=== PATIENT | male | born 1985 ===

== ENCOUNTER 2024-03-07 19:17 | Inpatient (IN) | payer OTHER ==
[2024-03-07 20:47] LABS: VENOUS BASE EXCESS -2.9 mmol/L (-2-2); VENOUS O2 SATURATION 34.2 % (70-80); VENOUS PCO2 49.9 mmHg (38-52); VENOUS PH 7.301 (7.310-7.410)
[2024-03-07 20:53] LABS: BASO % 0.4 % (0-2.0); EOS % 0.5 % (0-4.5); HEMATOCRIT 42.7 % (35.4-49); HEMOGLOBIN 14.3 GM/dL (11.7-16.9); LYMPH % 18.6 % (8-40); MCH 25.9 pg (25.7-33.7); MCHC 33.5 g/dl (32.0-35.9); MEAN CELL VOLUME 77.2 fl (80-96); MEAN PLT VOLUME 7.8 fl (7.5-11.1); MONO % 7.8 % (3.8-10.2); NEUT % 72.7 % (42.8-82.8); PLATELET COUNT 238 10^3/uL (134-434); RBC 5.54 M/mm3 (4.00-5.60); RDW 14.7 % (11.9-15.9); WHITE BLOOD COUNT 12.1 K/mm3 (4.0-10.0)
[2024-03-07 20:57] LABS: INR 1.05 (0.83-1.09); PROTHROMBIN TIME (PATIENT) 11.8 SEC (9.7-13.0)
[2024-03-07] MEDS: SODIUM CHLORIDE 0.9% 500 ML INFUS.BAG IV ONE ×2 (20:57→21:54)
[2024-03-07 21:00] LABS: ACTIVATED PTT 31.1 SECONDS (25.2-36.5)
[2024-03-07 21:08] LABS: CHLORIDE 103 mmol/L (98-107); POTASSIUM 4.3 mmol/L (3.5-5.1); SODIUM 137 mmol/L (136-145)
[2024-03-07 21:11] LABS: ALBUMIN 4.2 g/dl (3.4-5.0); ANION GAP 7 mmol/L (4-13); BLOOD UREA NITROGEN 14.2 mg/dL (7-18); CALCIUM 9.4 mg/dL (8.5-10.1); CO2 27 mmol/L (21-32); GLUCOSE,RANDOM 162 mg/dL (74-106); MAGNESIUM 2.2 mg/dL (1.8-2.4)
[2024-03-07 21:14] LABS: SGOT/AST 19 U/L (15-37); SGPT/ALT 20 U/L (13-61)
[2024-03-07 21:15] LABS: CREATININE 1.1 mg/dL (0.55-1.3)
[2024-03-07 21:16] LABS: BILIRUBIN,TOTAL 0.6 mg/dL (0.2-1); TOT PROT 7.8 g/dl (6.4-8.2)
[2024-03-07 21:17] LABS: ALK PHOS 81 U/L (45-117)
[2024-03-07] MEDS ORDERED: NALOXONE HCL 0.4 MG/ML VIAL ONE ×2 (21:23→22:43)
[2024-03-07] MEDS: NALOXONE HCL 0.4 MG/ML VIAL IVPUSH ONE ×2 (21:54→23:00)
[2024-03-08] MEDS: NALOXONE HCL 2 MG in DEXTROSE 5%-WATER - 495 ML IV SCH ×3 (00:08→07:11)
[2024-03-08] MEDS ORDERED: NALOXONE HCL 0.4 MG/ML VIAL ONE (00:11)
[2024-03-08] MEDS: NALOXONE HCL 0.4 MG/ML VIAL IVPUSH ONE (00:23)
[2024-03-08 01:07] LABS: PHENCYCLIDINE,URINE NEGATIVE (NEGATIVE); URINE BENZODIAZEPINES NEGATIVE (NEGATIVE)
[2024-03-08] MEDS: LACTATED RINGERS SOLUTION 1,000 ML/1,000 ML INFUS.BAG IV SCH (01:30)
[2024-03-08 01:40] LABS: COCAINE, UR POSITIVE (NEGATIVE); URINE AMPHETAMINES NEGATIVE (NEGATIVE); URINE BARBITURATES NEGATIVE (NEGATIVE)
[2024-03-08 01:44] LABS: METHADONE, UR POSITIVE (NEGATIVE); OPIATES, URI POSITIVE (NEGATIVE)
[2024-03-08 05:27] VITALS: BMI 29.9
[2024-03-08 07:34] LABS: BASO % 0.2 % (0-2.0); EOS % 0.1 % (0-4.5); HEMATOCRIT 39.6 % (35.4-49); HEMOGLOBIN 13.2 GM/dL (11.7-16.9); LYMPH % 10.2 % (8-40); MCHC 33.2 g/dl (32.0-35.9); MEAN CELL VOLUME 78.3 fl (80-96); MONO % 5.8 % (3.8-10.2); NEUT % 83.7 % (42.8-82.8); PLATELET COUNT 199 10^3/uL (134-434); RBC 5.06 M/mm3 (4.00-5.60); RDW 14.4 % (11.9-15.9); WHITE BLOOD COUNT 11.3 K/mm3 (4.0-10.0)
[2024-03-08 08:12] LABS: POTASSIUM 4.5 mmol/L (3.5-5.1)
[2024-03-08 08:14] LABS: ALBUMIN 3.4 g/dl (3.4-5.0); CALCIUM 9.1 mg/dL (8.5-10.1)
[2024-03-08 08:15] LABS: BLOOD UREA NITROGEN 11.1 mg/dL (7-18)
[2024-03-08 08:18] LABS: CREATININE 0.8 mg/dL (0.55-1.3); PHOSPHOROUS 2.2 mg/dL (2.5-4.9)
[2024-03-08 08:19] LABS: BILIRUBIN,TOTAL 0.7 mg/dL (0.2-1); TOT PROT 6.6 g/dl (6.4-8.2)
[2024-03-08] MEDS: ENOXAPARIN NA (PORCINE) 40 MG/0.4 ML DISP.SYRIN SQ SCH (09:10)
[2024-03-08] MEDS: MUPIROCIN 2% TOPICAL OINTMENT FOR DECOLONIZATION NS SCH (09:10)
[2024-03-08 12:39] VITALS: BP 112/78; PULSE 95; RESP 14; TEMP 98.1
[2024-03-08] MEDS ORDERED: CHLORHEXIDINE GLUCONATE 4% CLEANSER FOR DECOLONIZATION TP SCH (22:00)
== END 2024-03-08 13:01 | disposition home or self-care (01) | DRG 918 ==
LOC: JER 19:17 → JERBED 03-08 00:05 → JICU 03-08 01:21
PROVIDERS: ADMIT Internal Medicine Pulmonary Disease; ATTEND Internal Medicine Pulmonary Disease
DX: T40.2X1A Poisoning by other opioids, accidental (unintentional), initial encounter (principal); Y92.89 Other specified places as the place of occurrence of the external cause
CPT/HCPCS: 36415; 71045-TC-FY; 80053; 80307; 82803; 83735; 84100; 85025; 85610; 85730; 93005; 93010; 99291